=== PATIENT | male | born 1940 | race Caucasian/White ===

== ENCOUNTER 2017-01-21 08:44 | Day surgery (SDC) | payer OTHER ==
[2017-01-19 12:18] LABS: BASOPHILS 0.4 %; BASOPHILS ABSOLUTE 0.02 10/3/uL (0.0-0.16); EOSINOPHILS 2.5 %; EOSINOPHILS ABSOLUTE 0.13 10/3/uL (0.0-0.53); HEMATOCRIT 42.4 % (40.0-51.0); HEMOGLOBIN 14.5 g/dL (13.6-17.8); LYMPHOCYTES 37.5 %; LYMPHOCYTES ABSOLUTE 1.92 10/3/uL (0.67-4.30); MEAN CORPUS HGB CONC 34.2 g/dL (32.0-36.0); MEAN CORPUSCULAR VOLUME 87.8 fL (80-100); MEAN PLATELET VOLUME 11.2 fL (9.2-13.0); MONOCYTES 9.4 %; MONOCYTES ABSOLUTE 0.48 10/3/uL (0.21-1.20); NEUTROPHILS 50.2 %; NEUTROPHILS ABSOLUTE 2.57 10/3/uL (2.02-8.40); PLATELET COUNT 180 10/3/uL (150-400); RED CELL COUNT 4.83 10/6/uL (4.7-6.1); WHITE BLOOD CELLS 5.1 10/3/uL (4.5-10.5)
[2017-01-19 12:20] LABS: MANUAL DIFF NO %
[2017-01-19 12:23] LABS: BUN (BLOOD UREA NITROGEN) 9 MG/DL (6-23); CALCIUM, SERUM 8.7 MG/DL (8.5-10.4); CHLORIDE, SERUM 107 MMOL/L (96-112); CO2 (CARBON DIOXIDE) 26 MMOL/L (24-34); CREATININE 0.94 MG/DL (0.70-1.30); GFR AFRICAN AMERICAN 92 ML/MIN (>=60); GFR NON AFRICAN AMERICAN 79 ML/MIN (>=60); GLUCOSE, SERUM 105 MG/DL (60-99); SODIUM, SERUM 143 MMOL/L (135-148)
--- NOTE | ~2017-01-21 | OP ---
Record Of Operation [facility] [address] [place]. [address] NAME: SARATH CHASE : 42 STATUS : REG [facility] PAT#: [id number] AGE: 76 ADM/REG DATE : 01/21/17 MR#: [id number] REPORT SERV DATE: 01/21/17 DICTATED BY: MAKSIM MOTA DATE: 01/21/17 REPORT STATUS : Draft TRANSCRIBED BY: MODL DATE: 01/21/17 DATE OF PROCEDURE: 01/21/2017 PREOPERATIVE DIAGNOSES: 1. Right leg claudication. 2. Peripheral arterial disease with atherosclerosis. POSTOPERATIVE DIAGNOSIS: High-grade stenosis of the long segment of the right distal SFA. SURGERY PERFORMED: 1. Aortogram. 2. Bilateral lower extremity runoffs. 3. Right SFA stent using a 6 x 200. SURGEON: Maksim Mota M.D. DESCRIPTION OF PROCEDURE: The patient was placed under IV sedation. Both groins were prepped and draped in a sterile fashion. Left femoral artery cannulated with ultrasound direction. Needle, wire, and sheath were placed into the femoral artery. The UF catheter placed into the abdominal aorta. An aortogram done showing both renal arteries were patent. The aorta was calcified, both iliacs were mildly dilated with also wall calcification noted. UF pulled down the distal aorta. Runoff films done showing the right common external and internal were patent. The common femoral, profunda, there was plaque in the common, but no significant stenosis. The SFA showing high-grade stenosis in the distal aspect of the SFA with large eccentric calcified plaque. Also noted primary runoff was posterior tibial and probably anterior tibial as well. There is also a regular calcium plaquing in the distal popliteal and also tibial-peroneal trunk, did not appear to be critically stenotic. The left side showing common external and internal were patent. There was some stenosis of the distal common, the internal was not very large, the SFA and common femoral profunda was patent. The SFA also showing this large eccentric plaque in the distal portion. Popliteal opened distally and there was least two-vessel runoff in the upper calf. With this finding, UF was manipulated up and over the bifurcation. A wire was manipulated through this long segment of series of stenosis into the patent popliteal. He was given 2500 units of heparin. Due to the heavy calcification, this was first ballooned with a 4 x 150 balloon and then a 6 x 200 stent, placed across the entire segment. This was then ballooned with a 5 x 200 balloon and then the final run showing good flow through the stented portion and into the tibial vessels. The sheath was pulled back up and around the left side. The catheter was in common femoral vessel. This was then closed with an Angio-Seal, which worked effectively. Dry dressings were applied. The patient tolerate the procedure well and went to recovery room in good condition. MG/MODL Maksim Record Of Operation [address] [address] NAME: SARATH CHASE : 42 STATUS : REG [facility] PAT#: [id number] AGE: 76 ADM/REG DATE : 01/21/17 MR#: [id number] REPORT SERV DATE: 01/21/17 DICTATED BY: MAKSIM MOTA DATE: 01/21/17 REPORT STATUS : Draft TRANSCRIBED BY: MODL DATE: 01/21/17 Neyda Mota / [id number] CC: Neyda Johnson M.D.
[~2017-01-21 08:44] MED LIST: ASA5GR PO; ASAB PO; CO Q-10100 MG PO; COQ-1010 MG PO; COREG3 PO; COREG6 PO; CRESTOR10 PO; CRESTOR5 MG PO; FISH-EPA1000 MG PO; MVI PO; PLAVIX PO; PRISTIQ100 MG PO; THERGRANM PO
== END 2017-01-21 18:55 | disposition home or self-care (01) ==
LOC: SDC 08:44 → SSU1 12:37
PROVIDERS: Surgery Vascular Surgery
PROC: B40DYZZ Plain Radiography of Aorta and Bilateral Lower Extremity Arteries using Other Contrast (ICD-10-PCS; principal; 2017-01-21 10:15)
PROC: 047K3DZ Dilation of Right Femoral Artery with Intraluminal Device, Percutaneous Approach (ICD-10-PCS; 2017-01-21 10:15)
DX: I70.221 Atherosclerosis of native arteries of extremities with rest pain, right leg (principal); I25.10 Atherosclerotic heart disease of native coronary artery without angina pectoris; I11.0 Hypertensive heart disease with heart failure; I50.9 Heart failure, unspecified; E78.00 Pure hypercholesterolemia, unspecified; E78.5 Hyperlipidemia, unspecified; M54.9 Dorsalgia, unspecified; H91.90 Unspecified hearing loss, unspecified ear; Z98.890 Other specified postprocedural states; Z95.1 Presence of aortocoronary bypass graft; Z95.820 Peripheral vascular angioplasty status with implants and grafts; Z82.49 Family history of ischemic heart disease and other diseases of the circulatory system; Z87.891 Personal history of nicotine dependence; Z88.0 Allergy status to penicillin; Z79.82 Long term (current) use of aspirin; Z79.02 Long term (current) use of antithrombotics/antiplatelets; Z79.899 Other long term (current) drug therapy; Z97.2 Presence of dental prosthetic device (complete) (partial); Z98.42 Cataract extraction status, left eye; Z96.1 Presence of intraocular lens
CPT/HCPCS: 37226; 75625; 75716; 80048; 85025; 93005; A9270-GY; C1725; C1760; C1769; C1876; C1894; J0690; J2370; J2405; J3010; Q9966

== ENCOUNTER 2017-01-27 17:00 | Inpatient (IN) | payer OTHER ==
--- NOTE | ~2017-01-27 | OP ---
Record Of Operation [facility] [address] [place]. [address] NAME: SARATH CHASE : 42 STATUS : DIS IN PAT#: [id number] AGE: 76 ADM/REG DATE : 01/27/17 MR#: [id number] REPORT SERV DATE: 02/04/17 DICTATED BY: ISAAC NAVA DATE: 01/27/17 REPORT STATUS : Draft TRANSCRIBED BY: MODL DATE: 01/27/17 DATE OF PROCEDURE: 01/27/2017 PREOPERATIVE DIAGNOSIS: Right leg ischemia with arterial thrombosis. POSTOPERATIVE DIAGNOSIS: Right leg ischemia with arterial thrombosis. PROCEDURE: 1. Aortogram with right leg runoff. 2. Percutaneous thrombectomy, right popliteal artery. 3. Angioplasty of right popliteal artery. SURGEON: Isaac Nava M.D. ANESTHESIA: General. COMPLICATIONS: None. BLOOD LOSS: 100 mL. HISTORY: The patient is a 76-year-old male, who underwent a popliteal stent by Dr. Ku approximately a week ago. He has had two days of pain in his leg and right foot. Ultrasound earlier today showed occlusion of his popliteal stent. It was felt he would benefit from arteriogram with intervention to re-perfuse his leg. This was discussed in detail with the patient. He expressed understanding and desired to proceed. PROCEDURE IN DETAIL: The patient was taken to the operating room and placed in the supine position. He was given general anesthesia without complication. Both groins and entire right leg were prepped and draped in sterile fashion. Ultrasound was used to identify the common femoral artery on the left. Lidocaine 1% was infiltrated in the skin and subcutaneous tissues. Under ultrasound guidance, an 18-gauge needle was placed in the common femoral artery. Wire was passed into the aorta, which was confirmed with fluoroscopy. The needle was removed. A 5-Kiswahili sheath was placed. UF catheter was passed with the wire into the aorta. Aortogram shows a patent aorta with patent renal artery on the left. The right renal artery was not visualized. The iliac arteries, common and internal appear patent bilaterally. Wire was placed in the catheter. The catheter was placed in the external iliac artery. The right arteriogram shows patent external iliac artery, common femoral artery, profunda femoral artery, and superficial femoral artery. Additional imaging of the leg shows the superficial femoral artery to be patent to its distal aspect. There was a stent within the superficial femoral artery to the level of the knee joint, which appears to occlude in its mid and distal aspect. Collaterals fill around this location into the tibial vessels below the popliteal artery and there was some filling of all three. Wire was placed. The sheath was exchanged for a 6 x 45 sheath. The patient was on a heparin drip, which was continued throughout the case. A TrailBlazer catheter with the help of a wire was used across the occluded popliteal artery. A 50 mL of thrombectomy was performed with the 6-Kiswahili AngioJet device. A 10 mg of tPA were pulse sprayed Record Of [facility] [address] [place]. [address] NAME: SARATH CHASE : 42 STATUS : DIS IN PAT#: [id number] AGE: 76 ADM/REG DATE : 01/27/17 MR#: [id number] REPORT SERV DATE: 02/04/17 DICTATED BY: ISAAC NAVA DATE: 01/27/17 REPORT STATUS : Draft TRANSCRIBED BY: MODFer DATE: 01/27/17 throughout the popliteal artery and left set for 20 minutes. Another 50 mL of thrombectomy was performed with the AngioJet. Post arteriogram now shows a patent popliteal artery stent with stenosis in the midportion. There was mild irregularity in the tibioperoneal trunk and AngioJet was used to thrombectomize this area. Post arteriogram now shows good flow into the tibioperoneal trunk and distally. A 6 x 150 mm balloon was used to angioplasty the stenotic areas within the popliteal stent and post arteriogram now shows it to be widely patent with prompt flow. Arteriogram distally shows spasm, but patent tibial vessels including the posterior tibial and anterior tibial arteries with sluggish flow. The peroneal artery was poorly visualized. Select arteriogram was performed with the TrailBlazer of both the posterior tibial and anterior tibial arteries, and this showed this to be patent with spasm and no thrombus. Doppler confirmed a weak signal in the posterior tibial artery and no signal heard in the anterior tibial artery. Then, arteriogram noted a stenosis in the distal popliteal artery below the knee, which was angioplastied with a 5 x 40 balloon. Post arteriogram here shows it to be patent with no significant stenosis. A 30 mg of papaverine were then injected separately into the anterior tibial and posterior tibial arteries and post arteriogram shows the popliteal artery and stent to be widely patent and flow in the tibial vessels to the ankle. There was now Doppler signal in the posterior tibial and dorsalis pedis arteries and this was felt to be an adequate result. The sheath was removed. Access was closed with StarClose device without difficulty. The patient tolerated the procedure well. He was extubated in the operating room. He will be taken to recovery and continued on a heparin drip. NOE/LUKE Isaac Nava M.D. / [id number] CC: Rob Rosales M.D., [facility] David Bang M.D.
[2017-01-27 17:42] LABS: BASOPHILS 0.7 %; BASOPHILS ABSOLUTE 0.05 10/3/uL (0.0-0.16); EOSINOPHILS ABSOLUTE 0.15 10/3/uL (0.0-0.53); HEMOGLOBIN 16.1 g/dL (13.6-17.8); IMMATURE GRANULOCYTES 0.1 %; IMMATURE GRANULOCYTES ABSOLUTE 0.01 10/3/uL (0.0-0.11); LYMPHOCYTES 32.5 %; LYMPHOCYTES ABSOLUTE 2.45 10/3/uL (0.67-4.30); MEAN CORPUS HGB CONC 34.5 g/dL (32.0-36.0); MEAN CORPUSCULAR HEMOGLOB 30.4 pg (26.0-34.0); MEAN CORPUSCULAR VOLUME 88.1 fL (80-100); MEAN PLATELET VOLUME 11.2 fL (9.2-13.0); MONOCYTES 8.6 %; MONOCYTES ABSOLUTE 0.65 10/3/uL (0.21-1.20); NEUTROPHILS 56.1 %; NEUTROPHILS ABSOLUTE 4.23 10/3/uL (2.02-8.40); PLATELET COUNT 215 10/3/uL (150-400); RBC DISTRIBUTION WIDTH 13.5 % (12.0-16.0)
[2017-01-27 17:43] LABS: HEMATOCRIT 46.7 % (40.0-51.0); MANUAL DIFF NO %; WHITE BLOOD CELLS 7.5 10/3/uL (4.5-10.5)
[2017-01-27 17:50] LABS: INTERNATIONAL NORMAL RATI 1.1 UNITS (-); PARTIAL THROMBO TIME 31.4 SEC (22.5-37.2); PROTIME (NOT ORD) 13.8 SEC (12.0-14.5)
[2017-01-28 05:27] LABS: BASOPHILS 0.3 %; BASOPHILS ABSOLUTE 0.02 10/3/uL (0.0-0.16); EOSINOPHILS 1.3 %; HEMATOCRIT 40.5 % (40.0-51.0); HEMOGLOBIN 13.7 g/dL (13.6-17.8); IMMATURE GRANULOCYTES 0.3 %; IMMATURE GRANULOCYTES ABSOLUTE 0.02 10/3/uL (0.0-0.11); LYMPHOCYTES 12.2 %; LYMPHOCYTES ABSOLUTE 0.94 10/3/uL (0.67-4.30); MANUAL DIFF NO %; MEAN CORPUS HGB CONC 33.8 g/dL (32.0-36.0); MEAN CORPUSCULAR HEMOGLOB 29.7 pg (26.0-34.0); MEAN CORPUSCULAR VOLUME 87.7 fL (80-100); MONOCYTES 9.1 %; NEUTROPHILS 76.8 %; NEUTROPHILS ABSOLUTE 5.93 10/3/uL (2.02-8.40); PLATELET COUNT 164 10/3/uL (150-400); RBC DISTRIBUTION WIDTH 13.5 % (12.0-16.0); RED CELL COUNT 4.62 10/6/uL (4.7-6.1); WHITE BLOOD CELLS 7.7 10/3/uL (4.5-10.5)
[2017-01-28 05:48] LABS: BUN (BLOOD UREA NITROGEN) 12 MG/DL (6-23); CHLORIDE, SERUM 107 MMOL/L (96-112); CO2 (CARBON DIOXIDE) 26 MMOL/L (24-34); CREATININE 0.99 MG/DL (0.70-1.30); GFR AFRICAN AMERICAN 86 ML/MIN (>=60); GFR NON AFRICAN AMERICAN 74 ML/MIN (>=60); GLUCOSE, SERUM 101 MG/DL (60-99); POTASSIUM, SERUM 3.9 MMOL/L (3.5-5.3); SODIUM, SERUM 142 MMOL/L (135-148)
[2017-01-28] MEDS ORDERED: XARELTO20 MG PO (14:32)
[2017-01-28] MEDS ORDERED: XARELTO (14:34)
== END 2017-01-28 15:25 | disposition home or self-care (01) | DRG 252 ==
LOC: SDC/OF 17:00 → PACU 20:21 → 2SO 21:28
PROVIDERS: Surgery
PROC: B41F1ZZ Fluoroscopy of Right Lower Extremity Arteries using Low Osmolar Contrast (ICD-10-PCS; principal; 2017-01-27)
PROC: 04CM0ZZ Extirpation of Matter from Right Popliteal Artery, Open Approach (ICD-10-PCS; 2017-01-27)
PROC: 047M3ZZ Dilation of Right Popliteal Artery, Percutaneous Approach (ICD-10-PCS; 2017-01-27)
PROC: 3E05317 Introduction of Other Thrombolytic into Peripheral Artery, Percutaneous Approach (ICD-10-PCS; 2017-01-27)
DX: I70.213 Atherosclerosis of native arteries of extremities with intermittent claudication, bilateral legs (principal); J96.01 Acute respiratory failure with hypoxia; I13.2 Hypertensive heart and chronic kidney disease with heart failure and with stage 5 chronic kidney disease, or end stage renal disease; I74.3 Embolism and thrombosis of arteries of the lower extremities; N18.6 End stage renal disease; I50.32 Chronic diastolic (congestive) heart failure; I65.23 Occlusion and stenosis of bilateral carotid arteries; F31.9 Bipolar disorder, unspecified; E03.9 Hypothyroidism, unspecified; G47.33 Obstructive sleep apnea (adult) (pediatric); K21.9 Gastro-esophageal reflux disease without esophagitis; K58.9 Irritable bowel syndrome, unspecified; E78.5 Hyperlipidemia, unspecified; I25.10 Atherosclerotic heart disease of native coronary artery without angina pectoris; Z96.641 Presence of right artificial hip joint; Z98.890 Other specified postprocedural states; Z80.1 Family history of malignant neoplasm of trachea, bronchus and lung; Z88.5 Allergy status to narcotic agent; Z88.8 Allergy status to other drugs, medicaments and biological substances; Z99.2 Dependence on renal dialysis; Z88.0 Allergy status to penicillin
CPT/HCPCS: 37184; 37185; 37224; 75625; 75710; 75774; 80048; 85025; 85610; 85730; A9270-GY; C1725; C1757; C1769; C1894; J0330; J0690; J2250; J2270; J2405; J2440; J2997; J3010; Q9966